=== PATIENT | female | born 1950 | race Caucasian/White ===

== ENCOUNTER 2016-10-12 14:30 | Inpatient (IN) | payer MEDICARE, OTHER ==
[~2016-10-12 14:30] MED LIST: ASPIRIN325 M3 PO; CALTRATE 600 +1 EAC3 PO; CELEBREX200 M1 PO; CIPRO500 MG PO; DEMADEX20 M1 PO; DITROPAN XL10 M3 PO; FOLIC ACID0.4 M1 PO; LEVOTHYROXINE88 MC2 PO; MACROBID 100 M100 MG PO; OCUVITE EYE +1 EACH PO; PRINIVIL20 M1 PO; TOPAMAX50 M3 PO
[2016-10-12] MEDS ORDERED: OMEPRAZOLE20 M3 PO (15:59)
[2016-10-12 16:35] LABS: URINE BILIRUBIN SMALL (NEG); URINE BLOOD MODERATE (NEG); URINE GLUCOSE (UA) NEGATIVE (NEG); URINE KETONE NEGATIVE (NEG); URINE LEUKOCYTE ESTERASE POSITIVE (NEG); URINE NITRITE NEGATIVE (NEG); URINE PROTEIN SMALL (NEG)
[2016-10-12 16:35] LABS: BASO % 0.5 % (0-2); BASO ABSOLUTE COUNT 0.1 tho/cmm (0.0-0.2); EOS % 1.2 % (0-7); EOSINOPHIL ABSOLUTE COUNT 0.2 tho/cmm (0.0-0.7); HCT-HEMATOCRIT 38.7 % (34.0-49.0); HGB-HEMOGLOBIN 12.2 gm/dl (12.0-15.5); IMMATURE GRANULOCYTES ABSOLUTE 0.06 tho/cmm (0-0.03); IMMATURE GRANULOCYTES PERCENT 0.4 % (0-0.3); LYMPH % 23.2 % (20-45); LYMPH ABSOLUTE COUNT 3.4 tho/cmm (0.8-4.5); MCH (MEAN CORPUSCULAR HGB) 24.1 pg (28.0-32.0); MCHC MEAN CORPUSCULAR HGB CONC 31.5 % (32.0-36.0); MCV (MEAN CELL VOLUME) 76.5 fl (82.0-96.0); MONO % 9.3 % (0-12); MONOCYTE ABSOLUTE COUNT 1.4 tho/cmm (0.0-1.2); NEUTROPHIL ABSOLUTE COUNT 9.6 tho/cmm (1.6-8.0); NEUTROPHIL-AUTOMATED 9.6 tho/cmm (1.6-8.0); NEUTROPHILS % 65.4 % (40-80); PLATELET COUNT 158 tho/cmm (150-450); RED BLOOD COUNT 5.06 mil/cmm (4.00-5.20); RED CELL DISTRIBUTION WIDTH 17.7 % (12.4-16.4); WHITE BLOOD COUNT 14.7 tho/cmm (4.0-10.0)
[2016-10-12 16:39] LABS: URINE APPEARANCE CLOUDY; URINE BACTERIA 2+; URINE COLOR DARK YELLOW
[2016-10-12 16:40] LABS: URINE RBC 0 /[HPF] (0-5); URINE WBC 60-80 /[HPF] (0-5)
[2016-10-12 16:50] LABS: ANION GAP 14 mmol/L (0-20); BLOOD UREA NITROGEN 35 mg/dl (6-24); CALCIUM 8.8 mg/dl (8.5-10.5); CARBON DIOXIDE-VENOUS 24 mmol/L (22-32); CHLORIDE 104 mmol/l (96-110); CREATININE 1.69 mg/dl (0.50-1.10); GLUCOSE 77 mg/dL (70-110); POTASSIUM 3.4 mmol/L (3.7-5.1); SODIUM 139 mmol/L (135-145); eGFR VALUE FOR BLACK 37 mL/Min
[2016-10-13 03:01] LABS: ANION GAP 14 mmol/L (0-20); BLOOD UREA NITROGEN 26 mg/dl (6-24); CALCIUM 7.3 mg/dl (8.5-10.5); CARBON DIOXIDE-VENOUS 19 mmol/L (22-32); CHLORIDE 110 mmol/l (96-110); CREATININE 1.27 mg/dl (0.50-1.10); POTASSIUM 3.1 mmol/L (3.7-5.1); SODIUM 140 mmol/L (135-145); eGFR VALUE FOR BLACK 52 mL/Min
[2016-10-13 03:03] LABS: BASO % 0.1 % (0-2); EOS % 0.1 % (0-7); GLUCOSE 184 mg/dL (70-110); HGB-HEMOGLOBIN 9.4 gm/dl (12.0-15.5); IMMATURE GRANULOCYTES ABSOLUTE 0.06 tho/cmm (0-0.03); IMMATURE GRANULOCYTES PERCENT 0.4 % (0-0.3); LYMPH % 2.1 % (20-45); LYMPH ABSOLUTE COUNT 0.3 tho/cmm (0.8-4.5); MCHC MEAN CORPUSCULAR HGB CONC 31.3 % (32.0-36.0); MCV (MEAN CELL VOLUME) 76.5 fl (82.0-96.0); MONOCYTE ABSOLUTE COUNT 0.6 tho/cmm (0.0-1.2); NEUTROPHIL ABSOLUTE COUNT 14.9 tho/cmm (1.6-8.0); NEUTROPHIL-AUTOMATED 14.9 tho/cmm (1.6-8.0); NEUTROPHILS % 93.3 % (40-80); PLATELET COUNT 91 tho/cmm (150-450); RED BLOOD COUNT 3.92 mil/cmm (4.00-5.20); RED CELL DISTRIBUTION WIDTH 17.5 % (12.4-16.4); WHITE BLOOD COUNT 15.9 tho/cmm (4.0-10.0)
[2016-10-13 03:25] LABS: PROCALCITONIN 22.66 ng/ml (0.05-0.09)
[2016-10-13 06:08] LABS: ABG CO2 ARTERIAL 18 mmol/L (21-27); ARTERIAL BLD GAS O2 SATURATION 95 % (95-98); ARTERIAL BLOOD GAS PCO2 32 mmHg (32-45); ARTERIAL PO2 80 mmHg (70-100); BICARBONATE 17 mmol/L (21-28); BLOOD GAS BASE EXCESS -7 mM/L (-/+3); PH 7.36 Units (7.35-7.45)
[2016-10-13 06:52] LABS: INR 1.4 INR (0.9-1.1); PROTHROMBIN TIME 16.3 SECONDS (9.0-13.6)
[2016-10-13 06:56] LABS: MAGNESIUM 1.7 mg/dl (1.8-2.6)
[2016-10-13 10:18] LABS: HGB-HEMOGLOBIN 10.2 gm/dl (12.0-15.5); PLATELET COUNT 127 tho/cmm (150-450)
[2016-10-14 05:25] LABS: HCT-HEMATOCRIT 32.1 % (34.0-49.0); MCH (MEAN CORPUSCULAR HGB) 23.9 pg (28.0-32.0); MCHC MEAN CORPUSCULAR HGB CONC 31.2 % (32.0-36.0); MCV (MEAN CELL VOLUME) 76.8 fl (82.0-96.0); NEUTROPHIL-AUTOMATED 11.8 tho/cmm (1.6-8.0); RED BLOOD COUNT 4.18 mil/cmm (4.00-5.20); RED CELL DISTRIBUTION WIDTH 17.9 % (12.4-16.4); WHITE BLOOD COUNT 15.9 tho/cmm (4.0-10.0)
[2016-10-14 05:32] LABS: ALB/GLOB RATIO 0.5 (0.8-2.0); ALBUMIN 2.2 g/dl (3.5-5.0); ALKALINE PHOSPHATASE 84 U/L (33-138); ALT/SGPT 34 U/L (12-78); ANION GAP 14 mmol/L (0-20); AST/SGOT 32 U/L (10-40); BILIRUBIN,TOTAL 0.6 mg/dl (0-1.5); BLOOD UREA NITROGEN 12 mg/dl (6-24); CALCIUM 7.6 mg/dl (8.5-10.5); CARBON DIOXIDE-VENOUS 18 mmol/L (22-32); CHLORIDE 115 mmol/l (96-110); CREATININE 0.98 mg/dl (0.50-1.10); GLUCOSE 123 mg/dL (70-110); POTASSIUM 3.5 mmol/L (3.7-5.1); SODIUM 143 mmol/L (135-145); eGFR VALUE FOR BLACK 71 mL/Min
[2016-10-14 07:34] LABS: PLATELET COUNT 101 tho/cmm (150-450)
[2016-10-14 07:36] LABS: BAND % 7 % (0-20); BAND ABSOLUTE COUNT 1.1 tho/cmm (0-2.0); EOSINOPHIL % 2 % (0-7)
[2016-10-15 03:56] LABS: ANION GAP 14 mmol/L (0-20); BLOOD UREA NITROGEN 10 mg/dl (6-24); CARBON DIOXIDE-VENOUS 19 mmol/L (22-32); CHLORIDE 114 mmol/l (96-110); CREATININE 0.94 mg/dl (0.50-1.10); GLUCOSE 83 mg/dL (70-110); POTASSIUM 3.4 mmol/L (3.7-5.1); SODIUM 144 mmol/L (135-145); eGFR VALUE FOR BLACK 74 mL/Min
[2016-10-15 04:22] LABS: BASO % 0.6 % (0-2); BASO ABSOLUTE COUNT 0.1 tho/cmm (0.0-0.2); EOS % 3.7 % (0-7); EOSINOPHIL ABSOLUTE COUNT 0.5 tho/cmm (0.0-0.7); HCT-HEMATOCRIT 32.8 % (34.0-49.0); HGB-HEMOGLOBIN 10.2 gm/dl (12.0-15.5); IMMATURE GRANULOCYTES ABSOLUTE 0.06 tho/cmm (0-0.03); IMMATURE GRANULOCYTES PERCENT 0.5 % (0-0.3); LYMPH % 23.3 % (20-45); LYMPH ABSOLUTE COUNT 3.1 tho/cmm (0.8-4.5); MCH (MEAN CORPUSCULAR HGB) 23.9 pg (28.0-32.0); MCHC MEAN CORPUSCULAR HGB CONC 31.1 % (32.0-36.0); MONO % 6.8 % (0-12); MONOCYTE ABSOLUTE COUNT 0.9 tho/cmm (0.0-1.2); NEUTROPHIL ABSOLUTE COUNT 8.5 tho/cmm (1.6-8.0); NEUTROPHIL-AUTOMATED 8.5 tho/cmm (1.6-8.0); NEUTROPHILS % 65.1 % (40-80); PLATELET COUNT 103 tho/cmm (150-450); RED BLOOD COUNT 4.26 mil/cmm (4.00-5.20); RED CELL DISTRIBUTION WIDTH 18.1 % (12.4-16.4); WHITE BLOOD COUNT 13.1 tho/cmm (4.0-10.0)
[2016-10-16 05:14] LABS: ANION GAP 13 mmol/L (0-20); BLOOD UREA NITROGEN 7 mg/dl (6-24); CALCIUM 8.3 mg/dl (8.5-10.5); CARBON DIOXIDE-VENOUS 22 mmol/L (22-32); CHLORIDE 116 mmol/l (96-110); CREATININE 0.85 mg/dl (0.50-1.10); GLUCOSE 74 mg/dL (70-110); POTASSIUM 3.6 mmol/L (3.7-5.1); SODIUM 147 mmol/L (135-145); eGFR VALUE FOR BLACK 84 mL/Min
[2016-10-16 05:19] LABS: BASO % 0.8 % (0-2); BASO ABSOLUTE COUNT 0.1 tho/cmm (0.0-0.2); EOS % 3.7 % (0-7); EOSINOPHIL ABSOLUTE COUNT 0.4 tho/cmm (0.0-0.7); HCT-HEMATOCRIT 31.2 % (34.0-49.0); HGB-HEMOGLOBIN 9.7 gm/dl (12.0-15.5); IMMATURE GRANULOCYTES ABSOLUTE 0.08 tho/cmm (0-0.03); IMMATURE GRANULOCYTES PERCENT 0.7 % (0-0.3); LYMPH ABSOLUTE COUNT 2.9 tho/cmm (0.8-4.5); MCH (MEAN CORPUSCULAR HGB) 23.6 pg (28.0-32.0); MCHC MEAN CORPUSCULAR HGB CONC 31.1 % (32.0-36.0); MCV (MEAN CELL VOLUME) 75.9 fl (82.0-96.0); MONO % 7.2 % (0-12); MONOCYTE ABSOLUTE COUNT 0.8 tho/cmm (0.0-1.2); NEUTROPHIL ABSOLUTE COUNT 6.6 tho/cmm (1.6-8.0); NEUTROPHIL-AUTOMATED 6.6 tho/cmm (1.6-8.0); NEUTROPHILS % 60.6 % (40-80); PLATELET COUNT 111 tho/cmm (150-450); RED BLOOD COUNT 4.11 mil/cmm (4.00-5.20); RED CELL DISTRIBUTION WIDTH 17.9 % (12.4-16.4); WHITE BLOOD COUNT 10.8 tho/cmm (4.0-10.0)
[2016-10-16] MEDS ORDERED: FLOMAX0.4 M1 PO (12:49)
[2016-10-16] MEDS ORDERED: CIPRO500 M2 PO (12:49)
[2016-10-16] MEDS ORDERED: COLACE100 M1 PO (12:49)
[2016-10-16] MEDS ORDERED: NORCO 5-325 TA1 EACH PO (12:49)
[2016-11-11] MEDS ORDERED: DIFLUCAN150 M1 PO (14:32)
== END 2016-10-16 14:30 | DRG 871 ==
LOC: EDMED 14:30 → SRG 18:15 → ORW 19:10 → PACU 19:39 → 5WE 21:00 → CCU 10-13 03:30 → PCUB 10-15 18:24
PROVIDERS: Emergency Medicine; Internal Medicine; Nurse Practitioner Acute Care; Registered Nurse; ADMIT Urology
PROC: 0T768DZ Dilation of Right Ureter with Intraluminal Device, Via Natural or Artificial Opening Endoscopic (ICD-10-PCS; principal; 2016-10-12)
PROC: BT1DYZZ Fluoroscopy of Right Kidney, Ureter and Bladder using Other Contrast (ICD-10-PCS; 2016-10-12)
PROC: 05H633Z Insertion of Infusion Device into Left Subclavian Vein, Percutaneous Approach (ICD-10-PCS; 2016-10-13)
DX: A41.9 Sepsis, unspecified organism (principal); R65.21 Severe sepsis with septic shock; J96.01 Acute respiratory failure with hypoxia; N17.9 Acute kidney failure, unspecified; D69.6 Thrombocytopenia, unspecified; I69.354 Hemiplegia and hemiparesis following cerebral infarction affecting left non-dominant side; E87.2 Acidosis; N13.6 Pyonephrosis; N39.0 Urinary tract infection, site not specified; I10 Essential (primary) hypertension; K21.9 Gastro-esophageal reflux disease without esophagitis; M19.90 Unspecified osteoarthritis, unspecified site; E03.9 Hypothyroidism, unspecified; H35.30 Unspecified macular degeneration; Z79.82 Long term (current) use of aspirin; F17.220 Nicotine dependence, chewing tobacco, uncomplicated; Z88.1 Allergy status to other antibiotic agents; D64.9 Anemia, unspecified; R73.9 Hyperglycemia, unspecified; R91.8 Other nonspecific abnormal finding of lung field; E87.6 Hypokalemia; Z23 Encounter for immunization
CPT/HCPCS: C1751; C1769; C2617; G0009; J0696; J1956; J2175; J3010; J3370; J7030; J7040; P9045; Q9967